=== PATIENT | male | born 1980 | race Caucasian/White ===

== ENCOUNTER 2017-02-10 10:37 | Emergency (ER) | payer BC, OTHER ==
[~2017-02-10] VITALS: Ht 182.9 cm; Wt 95.3 kg
[2017-02-10] MEDS ORDERED: PROZAC20 MG PO (10:48)
[2017-02-10] MEDS ORDERED: PAXIL10 MG PO (10:49)
[2017-02-10] MEDS ORDERED: COUMADIN 1MG TAB1 M1 PO (10:49)
[2017-02-10 11:15] LABS: URINE BILIRUBIN NEGATIVE (Negative); URINE BLOOD 3+ (Negative); URINE COLOR YELLOW; URINE GLUCOSE-RANDOM* NEGATIVE (Negative); URINE KETONES NEGATIVE (Negative); URINE NITRITE NEGATIVE (Negative); URINE PROTEIN (DIPSTICK) TRACE (Negative); URINE UROBILINOGEN 0.2 E.U./dl (0.2-1.0)
[2017-02-10 11:18] LABS: ABSOLUTE NEUTROPHILS 7.3 thou/uL (1.4-8.2); BASOPHILS 0.7 % (0.0-2.0); EOSINOPHILS 3.4 % (0.0-3.0); HEMATOCRIT 47.9 % (42.0-52.0); LYMPHOCYTES 13.5 % (24.0-44.0); MCH 31.2 pg (26.0-34.0); MCHC 35.5 g/dL (28.0-37.0); MCV 87.9 fL (80.0-100.0); MONOCYTES 3.4 % (1.0-8.0); PLATELET COUNT 165 thou/uL (150-400); RBC 5.44 mil/uL (4.50-6.00); RDW 13.5 % (10.5-14.5); WBC 9.2 thou/uL (4.0-11.0)
[2017-02-10 11:30] LABS: CALCIUM 9.2 mg/dL (8.5-10.1); CREATININE 1.1 mg/dL (0.7-1.3); INR 1.9; POTASSIUM 4.1 mmol/L (3.5-5.1); PROTIME 19.4 Seconds (9.3-11.4)
[2017-02-10 11:33] LABS: MANUAL DIFF NO
[2017-02-10 11:35] LABS: ALBUMIN 4.1 g/dL (3.4-5.0); TOTAL BILIRUBIN 0.6 mg/dL (<0.1-1.0); TOTAL PROTEIN 7.9 g/dL (6.4-8.2)
[2017-02-10 11:46] LABS: CASTS None Seen /LPF (None Seen); SQUAMOUS 0-3 Few /LPF (0-3)
[2017-02-10 11:47] LABS: BACTERIA 1-9 Few /HPF (None Seen); CRYSTALS None Seen /LPF (None Seen); URINE RBC >20 Many /HPF (0-2); URINE WBC 0-5 Rare /HPF (0-5)
[2017-02-10] MEDS ORDERED: FLOMAX0.4 MG PO (12:39)
[2017-02-10] MEDS ORDERED: HYDROCODONE-AP1 EAC6 PO (12:39)
[2017-02-10 13:08] VITALS: BP 124/76
== END 2017-02-10 12:39 | disposition home or self-care (01) ==
LOC: ER 10:37
PROVIDERS: Nurse Practitioner Family
DX: N20.0 Calculus of kidney (principal); Z87.442 Personal history of urinary calculi; F17.210 Nicotine dependence, cigarettes, uncomplicated

== ENCOUNTER 2017-08-05 17:35 | Inpatient (IN) | payer BC, OTHER ==
[~2017-08-05] VITALS: Ht 182.9 cm; Wt 81.6 kg
--- NOTE | ~2017-08-05 | HC ---
[facility] [place] [address] CONSULTATION Name: JAZANA Nisa Room #: 434-P [facility] IN ..#: [id number] Admission: 08/05/17 Attend Phys: Lorne Cazares MD Discharge: 08/07/17 Date of : 84 Report #: [id number] THIS REPORT FOR: //name// CC: DENISE physician/PCP TIMOTHY Gregory DATE OF SERVICE: 08/06/2017 REASON FOR CONSULTATION: Abdominal pain, umbilical hernia. HISTORY OF PRESENT ILLNESS: This is a 37-year-old male patient with a known history of an umbilical hernia, which he has usually been able to reduce by himself. The patient developed swelling at the umbilicus, which he was unable to reduce accompanied with worsening abdominal pain and small bowel obstructive symptoms. He was seen in [facility] where he underwent CT of the abdomen and pelvis showing bowel entering the hernia defect with dilated proximal bowel and decompressed distal bowel. Based on these findings, a nasogastric tube was placed. Since that time, the patient reports that the hernia has reduced on its own and he has been passing flatus. PAST MEDICAL HISTORY: Significant for Factor V Leiden deficiency and anxiety. PAST SURGICAL HISTORY: Open right inguinal hernia repair in 2005. MEDICATIONS: Coumadin and Prozac. ALLERGIES: No known drug allergies. FAMILY HISTORY: Significant for atrial fibrillation in his father. SOCIAL HISTORY: The patient reports use of tobacco. Denies use of alcohol or illicit drugs. He works as a facilities maintenance assistant. REVIEW OF SYSTEMS: As per history of present illness. In addition: GENERAL: The patient denies fever or chills. Denies unintentional weight loss. HEENT: Denies changes in taste, vision, hearing, or smell. RESPIRATORY: Denies shortness of breath, COPD or asthma. CARDIOVASCULAR: Denies chest pain or palpitations. GASTROINTESTINAL: As per history of present illness. Less periumbilical pain now. Denies bright red blood per rectum. GENITOURINARY: Denies dysuria, urgency or increased urinary frequency. MUSCULOSKELETAL: Denies myalgia, arthralgia or arthritis. NEUROLOGIC: Denies headaches, numbness or tingling. PSYCHIATRIC: Denies depression or suicidal ideations. Has a history of [facility] [address] [place] [address] CONSULTATION Name: ANA SEBASTIAN Room #: 434-P [facility] IN [facility].#: [id number] Admission: 08/05/17 Attend Phys: Lorne Cazares MD Discharge: 08/07/17 Date of : 84 Report #: [id number] anxiety. ENDOCRINE: Denies polydipsia, polyuria, heat or cold intolerance. HEMATOLOGIC: Has a history of Factor V Leiden deficiency. His last Coumadin was taken 2 days ago. He reports INR is running between 2 and 3, although he also admits that he has been inconsistent with his medication usage. All other review of systems is negative. PHYSICAL EXAMINATION: VITAL SIGNS: Temperature 97.8, blood pressure 134/85, pulse 70, respirations 18. GENERAL: This is a well-developed, well-nourished 37-year-old male patient in no acute distress. HEENT: Head atraumatic, normocephalic with moist mucosal membranes. Oropharynx is clear. He has no scleral icterus. NECK: Supple, no appreciable lymphadenopathy. Trachea is midline. CHEST: Clear bilaterally. No crackles or wheezes. CARDIOVASCULAR: Regular rate and rhythm, S1, S2. ABDOMEN: Soft, but tender to palpation near the umbilicus where the umbilical hernia defect is palpable. He has no overlying erythema or edema. Right transverse incisional hernia repair scar is present that is well healed. GENITOURINARY: Normal external male genitalia. EXTREMITIES: No clubbing, cyanosis or edema. NEUROLOGIC: Cranial nerves 2-12 grossly intact. PSYCHIATRIC: Normal mood and affect. SKIN AND INTEGUMENTARY: No acute inflammatory changes, rashes or lesions are present. LABORATORY DATA: CBC shows a white blood cell count 9.6, hemoglobin 15.3, hematocrit 42.5 and platelets 170. Electrolytes showed sodium of 141, potassium 3.8, chloride 107, CO2 29, BUN 9, creatinine 0.9 and glucose 91. Lipase and alkaline phosphatase mildly elevated. INR was 1.2 last night and this morning. RADIOLOGIC STUDIES: CT of the abdomen and pelvis findings are as noted above. IMPRESSION AND PLAN: This is a 37-year-old male patient with history of Factor V Leiden deficiency, who has periumbilical abdominal pain. He underwent CT of the abdomen and pelvis showing bowel incarceration within the defect and this has since reduced after nasogastric decompression. We discussed the pathophysiology and natural history of abdominal wall hernias as well as treatment alternatives and surgical options. The patient would benefit from laparoscopic repair of his umbilical hernia. We discussed the risks, benefits and expectations with the patient in detail. The patient expressed understanding and wishes to proceed. He will be taken to the operating room at the next earliest availability for laparoscopic repair of his umbilical hernia. I sincerely appreciate the opportunity to participate in the care of this [facility] [address] [place] [address] CONSULTATION Name: ANA SEBASTIAN Room #: 434-P [facility] IN .R.#: [id number] Admission: 08/05/17 Attend Phys: Lorne Cazares MD Discharge: 08/07/17 Date of : 84 Report #: [id number] patient and will leave further recommendations and orders in the electronic medical record as appropriate. <ELECTRONICALLY SIGNED> By: Carlos Gregory MD, FACS 08/14/17 1007 [id number] Carlos Gregory MD, FACS /
--- NOTE | ~2017-08-05 | O ---
[facility] [place] [address] OPERATIVE REPORT Name: JAZANA Paula Room #: 434-P [facility] IN M.R.#: [id number] Admission: 08/05/17 Attend Phys: Lorne Cazares MD Discharge: 08/07/17 Date of : 84 Report #: [id number] THIS REPORT FOR: //name// CC: DENISE physician/PCP Lorne Gregory DATE OF SERVICE: 08/06/2017 SURGEON: Carlos Gregory MD. LONG TERM CARE ADMINISTRATOR: Sofía Beth NP. PREOPERATIVE DIAGNOSIS: Incarcerated umbilical hernia. POSTOPERATIVE DIAGNOSIS: Incarcerated umbilical hernia. PROCEDURE: Laparoscopic repair of incarcerated umbilical hernia with Ventralex ST 8 cm round mesh. ANESTHESIA: General endotracheal anesthesia and local anesthetic. ESTIMATED BLOOD LOSS: 5 mL. SPECIMEN: Incarcerated hernia content. COMPLICATIONS: None appreciated. INDICATIONS FOR PROCEDURE: This is a 37-year-old male patient with a known history of umbilical hernia. He developed periumbilical swelling with tenderness to palpation and he was seen in the [place] [facility] with pain and small bowel obstructive symptoms. CT showed incarcerated small bowel within the hernia with dilated proximal small bowel and distally decompressed bowel. The patient underwent placement of a nasogastric tube and with adequate decompression, the hernia content reduced. The patient presents now for laparoscopic repair of his umbilical hernia. OPERATIVE FINDINGS: Upon entrance into the abdominal cavity, omentum was seen extending up into the hernia defect. After this was taken down, more incarcerated tissue involving the anterior abdominal wall fat was present. After fully reducing this, the hernia defect itself was 1 cm or slightly greater in diameter. The 8-cm round Ventralex ST mesh patch was chosen for the repair. The bowel that had been entrapped within the hernia was completely viable. No other significant intra-abdominal pathology was seen. At the conclusion of the operation, sponge, needle, and instrument counts were correct. There was no evidence for iatrogenic injury. [facility] [address] [place] [address] OPERATIVE REPORT Name: ANA SEBASTIAN Room #: 434-P [facility] IN [facility].#: [id number] Admission: 08/05/17 Attend Phys: Lorne Cazares MD Discharge: 08/07/17 Date of : 84 Report #: [id number] DESCRIPTION OF PROCEDURE IN DETAIL: After the risks, benefits, and expectations of the operation were discussed in detail with the patient, informed consent was obtained. The patient was identified in the preoperative holding area. He was given IV antibiotics as documented in the chart in line with the SCIP metrics. The patient was then taken to the operating room and he was placed in the supine position. SCDs were placed on the patient's bilateral lower extremities and pneumatic compression was initiated. The patient was then given IV sedation and he was intubated without incident. A timeout was performed to identify the correct patient and procedure after prepping and draping the patient's abdomen. Local anesthetic was infiltrated into the skin and subcutaneous tissue in the left subcostal area where a small transverse incision was made. A 5-mm Visiport was then placed intraperitoneally with a 0-degree angled laparoscope. Pneumoperitoneum was achieved with insufflation with carbon dioxide to 15 mmHg. A 30-degree angled laparoscope was inserted. A left lateral 12-mm and left lower quadrant 5-mm port were each placed under direct visualization after local anesthetic was infiltrated into the skin and subcutaneous tissue and appropriately sized incisions were made. Operative findings are as noted above. The incarcerated omentum within the hernia defect was reduced from the hernia. The abdominal wall fat and peritoneal lining were then stripped off of the anterior abdominal wall to include the hernia sac, which was contained within the defect. The incarcerated hernia content was transected and placed in the right upper quadrant of the abdomen for later removal. The hernia defect was then measured. The appropriate sized Ventralex ST mesh patch was chosen for the repair. The tails of the mesh were excised and a 2-0 Vicryl suture was placed through center of the mesh. The mesh was then rolled and placed within the abdominal cavity through the 12-mm port. A needle tipped suture grasper was used to place a [id number] 0 PDS suture to close the defect. The grasper was then used to grasp the suture on the mesh. This was withdrawn through the anterior abdominal wall after tying the suture under direct visualization. The suture was tagged at the skin level. The mesh was then tacked to the anterior abdominal wall around its periphery with the SecureStrap absorbable fixation device in less than 1 cm intervals. There is no significant rippling of the mesh. The intraabdominal pressure had been dropped to 8 mmHg in order to stretch the mesh. The internal portion of the mesh was tacked to the anterior abdominal wall as well. The incarcerated content then removed through the 12-mm port site under direct visualization. A 0 PDS suture was placed with the Familia-Malia laparoscopic fascial closure device to close the 12-mm port site fascial opening. The suture was tied under direct visualization to ensure no incorporation of intra-abdominal content. The abdomen was then surveyed and there was no evidence for iatrogenic injury. The mesh was without rippling. No other significant pathology was seen. The abdominal cavity was desufflated and the ports were removed. Interrupted subcuticular 4-0 Monocryl sutures and Dermabond were used to close the skin incision. The patient tolerated the [facility] [address] [place] [address] OPERATIVE REPORT Name: ANA SEBASTIAN Room #: 434-P [facility] IN M.R.#: [id number] Admission: 08/05/17 Attend Phys: Lorne Cazares MD Discharge: 08/07/17 Date of : 84 Report #: [id number] procedure well. He was awakened, extubated, and taken to recovery room in stable condition with no apparent intraoperative complications. <ELECTRONICALLY SIGNED> By: Carlos Gregory MD, FACS 08/14/17 1007 1741 1832 Carlos Gregory MD, FACS /nt
--- NOTE | ~2017-08-05 | S ---
[facility] [place] [address] SURGICAL PATH RPT PROCEDURE Name: ANA GLASGOW Room #: 434-P [facility] IN M.R.#: [id number] Admission: 08/05/17 Date of : 84 Discharge: 08/07/17 Report #: [id number] Path Case #: [id number] PATHOLOGY REPORT COLLECTION DATE: 08/06/2017 RECEIVED DATE: 08/06/2017 SUBMITTING PHYS: Dr. Carlos Gregory OTHER PHYS: Dr. Vinicius Ray SPECIMEN(S) RECEIVED: A.Incarcerated umbilical hernia contents * * * * * * * * * * * * FINAL DIAGNOSIS: A. Incarcerated umbilical hernia contents: - Consistent with hernia sac. PATHOLOGIST: Antwan Oliveros M.D. REPORT ELECTRONICALLY SIGNED BY: Antwan Oliveros M.D. DATE/TIME: 08/11/2017 10:09 * * * * * * * * * * * * GROSS PATHOLOGY: Received in formalin labeled "Ana Glasgow, incarcerated umbilical hernia contents" and consists of several lobulated, glistening, and yellow fragments of adipose tissue aggregating to 9.2 x 8.7 x 2.5 cm. Also within the aggregate is a 2.6 cm fragment of fibromembranous tissue. Sectioning reveals no obvious gross lesions. [employer] sections submitted as A1. (RENETTA; 08/07/2017) CLINICAL HISTORY: Incarcerated umbilical hernia INITIAL CPT CODE(S): A; 86561 Professional services performed by [facility] at [facility] [address], [place] [address] Technical services performed by [facility] at [address] [place] [id number]. [facility] [address] [place] [address] SURGICAL PATH RPT PROCEDURE Name: ANA GLASGOW Room #: 434-P [facility] IN M.R.#: [id number] Admission: 08/05/17 Date of : 84 Discharge: 08/07/17 Report #: [id number] Path Case #: [id number] [facility] [address] PHONE: [phone] DIRECTOR: Ibrahima Delgadillo M.D. * * * END OF REPORT * * *
[~2017-08-05 17:35] MED LIST: COUMADIN 1MG TAB1 M1 PO; FLOMAX0.4 MG PO; HYDROCODONE-AP1 EAC6 PO; PAXIL10 MG PO; PROZAC20 MG PO
[2017-08-05 17:36] VITALS: BP 159/98
[2017-08-05] MEDS ORDERED: ZANTAC 150MG T150 M1 PO (17:40)
[2017-08-05 18:01] LABS: ABSOLUTE NEUTROPHILS 6.2 thou/uL (1.4-8.2); BASOPHILS 0.9 % (0.0-2.0); EOSINOPHILS 5.1 % (0.0-3.0); HEMATOCRIT 47.3 % (42.0-52.0); HEMOGLOBIN 16.9 gm/dL (14.0-18.0); LYMPHOCYTES 30.1 % (24.0-44.0); MCH 31.4 pg (26.0-34.0); MCHC 35.7 g/dL (28.0-37.0); MONOCYTES 6.5 % (1.0-8.0); PLATELET COUNT 208 thou/uL (150-400); POLYS 57.4 % (36.0-66.0); RBC 5.38 mil/uL (4.50-6.00); RDW 13.5 % (10.5-14.5); WBC 10.8 thou/uL (4.0-11.0)
[2017-08-05 18:12] LABS: CALCIUM 9.2 mg/dL (8.5-10.1); CREATININE 0.9 mg/dL (0.7-1.3); POTASSIUM 3.6 mmol/L (3.5-5.1)
[2017-08-05 18:16] LABS: ALBUMIN 4.2 g/dL (3.4-5.0); TOTAL BILIRUBIN 0.4 mg/dL (<0.1-1.0); TOTAL PROTEIN 7.8 g/dL (6.4-8.2)
[2017-08-05 18:19] LABS: INR 1.2
[2017-08-05 19:09] LABS: URINE BILIRUBIN NEGATIVE (Negative); URINE BLOOD NEGATIVE (Negative); URINE CLARITY CLEAR; URINE COLOR YELLOW; URINE GLUCOSE-RANDOM* NEGATIVE (Negative); URINE KETONES NEGATIVE (Negative); URINE LEUKOCYTES NEGATIVE (Negative); URINE NITRITE NEGATIVE (Negative); URINE PROTEIN (DIPSTICK) NEGATIVE (Negative); URINE UROBILINOGEN 0.2 E.U./dl (0.2-1.0)
[2017-08-05 20:07] VITALS: BP 128/78
[2017-08-06] VITALS (8 sets, daily range): BP systolic 96–136; BP diastolic 47–85
[2017-08-06 06:12] LABS: ABSOLUTE NEUTROPHILS 6.2 thou/uL (1.4-8.2); BASOPHILS 0.3 % (0.0-2.0); EOSINOPHILS 3.5 % (0.0-3.0); HEMATOCRIT 42.5 % (42.0-52.0); HEMOGLOBIN 15.3 gm/dL (14.0-18.0); LYMPHOCYTES 25.3 % (24.0-44.0); MCH 31.3 pg (26.0-34.0); MCV 86.9 fL (80.0-100.0); MONOCYTES 6.8 % (1.0-8.0); PLATELET COUNT 170 thou/uL (150-400); POLYS 64.1 % (36.0-66.0); RBC 4.89 mil/uL (4.50-6.00); RDW 13.7 % (10.5-14.5); WBC 9.6 thou/uL (4.0-11.0)
[2017-08-06 06:24] LABS: CALCIUM 8.6 mg/dL (8.5-10.1); CREATININE 0.9 mg/dL (0.7-1.3); INR 1.2; POTASSIUM 3.8 mmol/L (3.5-5.1); PROTIME 11.8 Seconds (9.3-11.4)
[2017-08-07 01:58] LABS: HEMATOCRIT 42.8 % (42.0-52.0); HEMOGLOBIN 14.8 gm/dL (14.0-18.0); MCH 30.8 pg (26.0-34.0); MCHC 34.7 g/dL (28.0-37.0); MCV 88.7 fL (80.0-100.0); PLATELET COUNT 175 thou/uL (150-400); RBC 4.82 mil/uL (4.50-6.00); WBC 11.4 thou/uL (4.0-11.0)
[2017-08-07 02:06] LABS: CALCIUM 8.5 mg/dL (8.5-10.1); CREATININE 0.8 mg/dL (0.7-1.3); POTASSIUM 4.1 mmol/L (3.5-5.1)
[2017-08-07 02:16] LABS: INR 1.1; PROTIME 11.4 Seconds (9.3-11.4)
[2017-08-07 02:22] LABS: ABSOLUTE NEUTROPHILS 9.7 thou/uL (1.4-8.2); ATYPICAL LYMPHS 4 %; LARGE PLATELETS OCCASIONAL
[2017-08-07 04:30] VITALS: BP 120/71
[2017-08-07 07:05] VITALS: BP 134/86
[2017-08-07 13:31] VITALS: BP 134/86
[2017-08-07] MEDS ORDERED: NORCO 5-325 TA1 EACH PO (15:11)
[2017-08-07] MEDS ORDERED: ENOXAPARIN80 MG/0.1 SUBQ (15:15)
[2017-08-07 15:24] VITALS: BP 134/86
== END 2017-08-07 15:50 | disposition home or self-care (01) | DRG 354 ==
LOC: ER 17:35 → EROBS 19:29 → 4S 19:29 → ENTRNSPT 08-07 15:42 → EDTRNSPTSTS 08-07 15:44 → 4S 08-07 15:50
PROVIDERS: Physician Assistant; Surgery
PROC: 0WUF4JZ Supplement Abdominal Wall with Synthetic Substitute, Percutaneous Endoscopic Approach (ICD-10-PCS; principal; 2017-08-06)
DX: K42.0 Umbilical hernia with obstruction, without gangrene (principal); D68.51 Activated protein C resistance; R26.9 Unspecified abnormalities of gait and mobility; F17.210 Nicotine dependence, cigarettes, uncomplicated; Z87.442 Personal history of urinary calculi; Z79.01 Long term (current) use of anticoagulants; Z79.899 Other long term (current) drug therapy
CPT/HCPCS: 10195; 50010; 50101; 50249; 50386; 50555; 50558; 50621; 50962; 50984; 52265; 53307; 54022; 54118; 56462; 56525; 56526; 57092; 62110; 62900; 70005

== ENCOUNTER 2020-11-19 15:27 | Emergency (ER) | payer OTHER ==
[~2020-11-19] VITALS: Ht 182.9 cm; Wt 94.8 kg
[~2020-11-19 15:27] MED LIST changes: +ENOXAPARIN80 MG/0.1 SUBQ; +NORCO 5-325 TA1 EACH PO; +ZANTAC 150MG T150 M1 PO
[2020-11-19] MEDS ORDERED: KEFLEX500 M1 PO (17:16)
[2020-11-19] MEDS ORDERED: NAPROSYN500 M1 PO (17:16)
[2020-11-19 17:24] VITALS: BP 113/89
== END 2020-11-19 17:17 | disposition home or self-care (01) ==
LOC: ER 15:27
DX: I80.01 Phlebitis and thrombophlebitis of superficial vessels of right lower extremity (principal); L03.115 Cellulitis of right lower limb; F17.210 Nicotine dependence, cigarettes, uncomplicated; Z79.899 Other long term (current) drug therapy; Z86.718 Personal history of other venous thrombosis and embolism